=== PATIENT | male | born 1990 | race Caucasian/White ===

== ENCOUNTER 2022-12-24 19:44 | Emergency (ER) | payer BC | END 2022-12-24 20:30 | disposition home or self-care (01) | LOC: SED 19:44 | DX: S61.210A Laceration without foreign body of right index finger without damage to nail, initial encounter (principal); Z79.899 Other long term (current) drug therapy; W26.9XXA Contact with unspecified sharp object(s), initial encounter; Y93.89 Activity, other specified; Y92.89 Other specified places as the place of occurrence of the external cause; Y99.8 Other external cause status | CPT/HCPCS: 99282 ==

== ENCOUNTER 2023-02-14 06:38 | Emergency (ER) | payer OTHER, BC ==
[~2023-02-14] VITALS: Ht 188 cm; Wt 86.2 kg
[2023-02-14] MEDS ORDERED: NACL 0.9% 1,000 ML IV ONE (06:45)
[2023-02-14 06:46] VITALS: BP_SYST 121; PULSE 82; RESP 18; TEMP 97.5; O2SAT 100
[2023-02-14] MEDS ORDERED: SOM350 PO (07:35)
[2023-02-14] MEDS ORDERED: IBUP-1971 PO (07:35)
[2023-02-14 08:37] VITALS: BP_SYST 125; PULSE 79; RESP 16; TEMP 97.5; O2SAT 98
== END 2023-02-14 08:35 | disposition home or self-care (01) ==
LOC: SED 06:38
DX: S13.4XXA Sprain of ligaments of cervical spine, initial encounter (principal); R53.1 Weakness; Z79.899 Other long term (current) drug therapy; V89.2XXA Person injured in unspecified motor-vehicle accident, traffic, initial encounter; Y93.89 Activity, other specified; Y92.89 Other specified places as the place of occurrence of the external cause; Y99.8 Other external cause status
CPT/HCPCS: 99283; 96360; 72040; J7030